=== PATIENT | female | born 2000 | race African-American/Black ===

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

== ENCOUNTER → 2018-01-23 | Outpatient (CLI) | payer OTHER | LOC: M RAD 07:29 | DX: I10 Essential (primary) hypertension (principal) | CPT/HCPCS: 76775 ==

== ENCOUNTER 2019-04-24 18:47 | Emergency (ER) | payer OTHER ==
[~2019-04-24] VITALS: Ht 170.2 cm; Wt 129.6 kg
[~2019-04-24 18:47] MED LIST: NAPR-837 PO; REGL10TA6 PO; [UNRECOGNIZED DRUG - MIXTURE]
[2019-04-24] MEDS: ONDANSETRON 4 MG ORAL DISINTEGRATING TAB (Q0162 PER 1MG) PO ONE (19:14)
[2019-04-24] MEDS: ACETAMINOPHEN 325 MG TAB PO ONE (19:14)
[2019-04-24] MEDS ORDERED: ONDA4TAB6 PO (19:49)
[2019-04-24] MEDS ORDERED: IBUP-1022 PO (19:49)
[2019-04-24 19:54] VITALS: BP 138/84
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
[2019-04-25] MEDS ORDERED: ZOFR4TAB16 PO (18:16)
== END 2019-04-24 19:55 | disposition home or self-care (01) ==
LOC: M ED 18:47
DX: S03.43XA Sprain of jaw, bilateral, initial encounter (principal); S09.90XA Unspecified injury of head, initial encounter; Y04.8XXA Assault by other bodily force, initial encounter; Y92.481 Parking lot as the place of occurrence of the external cause; Y93.89 Activity, other specified; Y99.8 Other external cause status
CPT/HCPCS: 70110; 99283; Q0162

== ENCOUNTER 2019-04-25 17:11 | Emergency (ER) | payer OTHER ==
[~2019-04-25] VITALS: Ht 170.2 cm; Wt 129.6 kg
[~2019-04-25 17:11] MED LIST changes: +IBUP-1022 PO; +ONDA4TAB6 PO
[2019-04-25] MEDS ORDERED: ACETAMINOPHEN 325 MG TAB PO ONE (17:45)
[2019-04-25] MEDS ORDERED: ONDANSETRON 4 MG ORAL DISINTEGRATING TAB (Q0162 PER 1MG) PO ONE (17:45)
[2019-04-25] MEDS ORDERED: ZOFR4TAB16 PO (18:16)
[2019-04-25 18:36] VITALS: BP 141/96
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
== END 2019-04-25 18:38 | disposition home or self-care (01) ==
LOC: M ED 17:11
DX: S06.0X0A Concussion without loss of consciousness, initial encounter (principal); Y04.8XXA Assault by other bodily force, initial encounter; Y92.199 Unspecified place in other specified residential institution as the place of occurrence of the external cause; I10 Essential (primary) hypertension
CPT/HCPCS: 70450; 99283; Q0162

== ENCOUNTER → 2019-10-11 | Outpatient (CLI) | payer OTHER, SELFPAY ==
[~2019-10-11] MED LIST changes: +ZOFR4TAB16 PO
== END ==
LOC: M LABSMTC 14:41
PROVIDERS: ATTEND Family Medicine
DX: Z11.59 Encounter for screening for other viral diseases (principal); Z03.818 Encounter for observation for suspected exposure to other biological agents ruled out
CPT/HCPCS: C9803; U0003

== ENCOUNTER → 2019-12-27 | Outpatient (CLI) | payer SELFPAY ==
[~2019-12-27] MED LIST changes: +BACT800T5 PO; +NORC1TAB7 PO
--- NOTE | 2020-02-21 08:51 | REP ---
CHEST X-RAY CLINICAL: Chest pain. TECHNIQUE: PA and lateral. COMPARISON: 04/04/2015. FINDINGS: Mediastinum and cardiac silhouette normal. Lung alcantar clear. No consolidation, effusion, or pneumothorax. Skeletal structures are intact. IMPRESSION: No acute cardiopulmonary process or focal consolidation. MTDD
== END ==
LOC: M RAD 12:56
PROVIDERS: ATTEND Physician Assistant Medical
DX: Z03.818 Encounter for observation for suspected exposure to other biological agents ruled out (principal); R05 Cough

== ENCOUNTER 2020-01-31 21:03 | Emergency (ER) | payer OTHER, SELFPAY ==
[~2020-01-31] VITALS: Ht 175.3 cm; Wt 134.7 kg
[~2020-01-31 21:03] MED LIST changes: -BACT800T5 PO; -NORC1TAB7 PO
[2020-02-01] MEDS ORDERED: NS 1,000 ML IV ONE (00:15)
[2020-02-01] MEDS ORDERED: cefTRIAXone SOD 1 GM in D5W MINI-BAG PLUS 50 ML IV ONE (00:15)
[2020-02-01 01:11] LABS: BASO % 0.3 % (0.0-1.0); EOS # 0.1 10^3/uL (0.0-0.5); EOS % 1.4 % (0.0-3.0); HEMATOCRIT 30.4 % (36.0-47.0); LYMPH # 1.7 10^3/uL (1.5-5.0); LYMPH % 26.2 % (24.0-44.0); MEAN CORPUSCULAR HEMOGLOBIN 28.5 pg (27.0-33.0); MEAN CORPUSCULAR HGB CONC 32.9 g/dl (32.0-36.5); MEAN CORPUSCULAR VOLUME 86.6 fl (80.0-96.0); MONO # 0.4 10^3/uL (0.0-0.8); MONO % 6.7 % (0.0-5.0); NEUTROPHILS # 4.3 10^3/uL (1.5-8.5); NEUTROPHILS % 65.1 % (36.0-66.0); PLATELET COUNT, AUTOMATED 202 10^3/uL (150-450); RED BLOOD COUNT 3.51 10^6/uL (4.00-5.40); WHITE BLOOD COUNT 6.6 10^3/uL (4.0-10.0)
[2020-02-01 01:31] LABS: ERYTHROCYTE SEDIMENTATION RATE 64 mm/hr (0-20)
[2020-02-01 01:32] LABS: BLOOD UREA NITROGEN 8 MG/DL (7-18); C REACTIVE PROTEIN QUANTITATIV 2.25 MG/DL (0.00-0.30); CALCIUM LEVEL 8.4 MG/DL (8.5-10.1); CARBON DIOXIDE LEVEL 26 MEQ/L (21-32); CHLORIDE LEVEL 106 MEQ/L (98-107); CREATININE FOR GFR 0.72 MG/DL (0.55-1.30); GLOMERULAR FILTRATION RATE > 60.0 (>60); GLUCOSE, FASTING 92 MG/DL (70-100); SODIUM LEVEL 137 MEQ/L (136-145)
[2020-02-01] MEDS ORDERED: BACT800T5 PO (01:44)
[2020-02-01] MEDS ORDERED: NORCO 5/325MG TABLET (BULK FOR ED) PO ONE (01:45)
[2020-02-01 01:55] VITALS: BP 138/82
[2020-02-01] MEDS ORDERED: NORC1TAB7 PO (01:55)
== END 2020-02-01 02:08 | disposition home or self-care (01) ==
LOC: M ED 21:03
DX: L02.31 Cutaneous abscess of buttock (principal); I10 Essential (primary) hypertension; J45.909 Unspecified asthma, uncomplicated; R51 Headache; Z79.899 Other long term (current) drug therapy
CPT/HCPCS: 80048; 85025; 85652; 86140; 87040; 96365; 96366; 99283; J0696

== ENCOUNTER → 2020-03-08 | Outpatient (REF) | payer OTHER ==
[~2020-03-08] MED LIST changes: +BACT800T5 PO; +NORC1TAB7 PO
[2020-03-08 14:15] LABS: APPEARANCE, URINE HAZY (CLEAR); BACTERIA, URINE AUTO 1+ (NEGATIVE); BILIRUBIN, URINE AUTO NEGATIVE (NEGATIVE); BLOOD, URINE BLOOD NEGATIVE (NEGATIVE); COLOR, URINE YELLOW (YELLOW); GLUCOSE, URINE (UA) AUTO NEGATIVE (NEGATIVE); KETONE, URINE AUTO NEGATIVE (NEGATIVE); LEUKOCYTE ESTERASE, URINE AUTO 2+ (NEGATIVE); MUCUS, URINE SMALL (NEGATIVE); NITRITE, URINE AUTO NEGATIVE (NEGATIVE); PROTEIN, URINE AUTO NEGATIVE (NEGATIVE); RBC, URINE AUTO 2 /HPF (0-3); SPECIFIC GRAVITY URINE AUTO 1.017 (1.002-1.035); SQUAMOUS EPITHELIAL CELL UR AU 6 /HPF (0-6); UROBILINOGEN, URINE AUTO 0.2 mg/dL (0.0-2.0); WBC, URINE AUTO 1 /HPF (0-3)
== END ==
LOC: M LAB REF 12:34
PROVIDERS: ATTEND Physician Assistant Medical
DX: N39.0 Urinary tract infection, site not specified (principal); Z11.3 Encounter for screening for infections with a predominantly sexual mode of transmission

== ENCOUNTER → 2020-04-17 | Outpatient (REF) | payer OTHER ==
[2020-04-17 17:09] LABS: ALBUMIN 3.6 GM/DL (3.2-5.2); ALT/SGPT 23 U/L (12-78); BILIRUBIN,TOTAL 0.5 MG/DL (0.2-1.0); BLOOD UREA NITROGEN 10 MG/DL (7-18); CALCIUM LEVEL 8.9 MG/DL (8.5-10.1); CARBON DIOXIDE LEVEL 28 MEQ/L (21-32); CHLORIDE LEVEL 104 MEQ/L (98-107); CHOLESTEROL LEVEL 240 MG/DL (<200); CHOLESTEROL RISK RATIO 7.058 (<5); CREATININE FOR GFR 0.79 MG/DL (0.55-1.30); FREE T4 0.93 NG/DL (0.76-1.46); GLOMERULAR FILTRATION RATE > 60.0 (>60); GLUCOSE, FASTING 135 MG/DL (70-100); HDL CHOLESTEROL 34 MG/DL (>40); LDL CHOLESTEROL 167 MG/DL (<100); NON-HDL-C 206 MG/DL; POTASSIUM SERUM 4.6 MEQ/L (3.5-5.1); SODIUM LEVEL 137 MEQ/L (136-145); THYROID STIMULATING HORMONE 0.957 uIU/ML (0.358-3.740); TOTAL PROTEIN 7.6 GM/DL (6.4-8.2); TRIGLYCERIDES LEVEL 194 MG/DL (<150)
[2020-04-17 17:13] LABS: BASO % 0.9 % (0.0-1.0); EOS # 0.1 10^3/uL (0.0-0.5); EOS % 1.8 % (0.0-3.0); HEMATOCRIT 36.9 % (36.0-47.0); HEMOGLOBIN 11.7 g/dl (12.0-15.5); LYMPH # 1.8 10^3/uL (1.5-5.0); MEAN CORPUSCULAR HEMOGLOBIN 26.7 pg (27.0-33.0); MEAN CORPUSCULAR HGB CONC 31.7 g/dl (32.0-36.5); MEAN CORPUSCULAR VOLUME 84.2 fl (80.0-96.0); MONO # 0.3 10^3/uL (0.0-0.8); MONO % 6.5 % (0.0-5.0); NEUTROPHILS # 2.2 10^3/uL (1.5-8.5); NEUTROPHILS % 49.4 % (36.0-66.0); PLATELET COUNT, AUTOMATED 288 10^3/uL (150-450); RED BLOOD COUNT 4.38 10^6/uL (4.00-5.40); WHITE BLOOD COUNT 4.5 10^3/uL (4.0-10.0)
[2020-04-17 17:15] LABS: HEMOGLOBIN A1c 5.7 %
== END ==
LOC: M LAB REF 16:18
PROVIDERS: ATTEND Nurse Practitioner Family
DX: E66.9 Obesity, unspecified (principal); F41.1 Generalized anxiety disorder; R51.9 Headache, unspecified; F41.9 Anxiety disorder, unspecified

== ENCOUNTER 2020-04-30 09:53 | Emergency (ER) | payer OTHER ==
[~2020-04-30] VITALS: Ht 170.2 cm; Wt 133.4 kg
[2020-04-30] MEDS ORDERED: NS 1,000 ML IV ONE (10:15)
[2020-04-30] MEDS ORDERED: SUMAtriptan SUCCINATE 6 MG/0.5 ML VIAL SC ONE (10:15)
[2020-04-30] MEDS ORDERED: METOCLOPRAMIDE INJ 10MG/2ML VIAL (J2765 PER 1) IV ONE (10:15)
[2020-04-30] MEDS ORDERED: diphenhydrAMINE 50MG/ML VIAL (J1200) IV ONE (10:15)
[2020-04-30] MEDS ORDERED: KETOROLAC 30 MG/ML 1ML VIAL IV ONE (10:15)
--- NOTE | 2020-04-30 12:07 | REP ---
INDICATION: dizziness COMPARISON: 04/25/2019 TECHNIQUE: Axial noncontrast images from the skull base to the vertex with coronal reformations. This CT examination was performed using the following dose reduction techniques: Automated exposure control, adjustment of mA and/or kv according to the patient's size, and use of iterative reconstruction technique. FINDINGS: The ventricles, sulci, and cisterns are normal in position and appearance. Garay-white differentiation is maintained. No acute intracranial hemorrhage, mass/mass effect, pathology or trauma/injury. No evidence for acute infarction. No extra-axial fluid collection. Calvarium is intact. Paranasal sinuses and mastoid air cells are clear. IMPRESSION: Normal noncontrast head CT. No evidence for acute intracranial pathology or trauma/injury. <Electronically signed by Stefan Blancas > 04/30/20 [id number]
[2020-04-30] MEDS ORDERED: MECLIZINE 25 MG TABLET PO ONE (12:15)
[2020-04-30] MEDS ORDERED: ONDANSETRON 4MG/2ML VIAL IV ONE (12:15)
[2020-04-30] MEDS ORDERED: ONDA4TAB6 PO (13:06)
[2020-04-30 13:25] VITALS: BP 118/57
== END 2020-04-30 13:27 | disposition home or self-care (01) ==
LOC: M ED 09:53
DX: R51.9 Headache, unspecified (principal); I10 Essential (primary) hypertension; R42 Dizziness and giddiness; G43.909 Migraine, unspecified, not intractable, without status migrainosus; Z82.0 Family history of epilepsy and other diseases of the nervous system; Z82.49 Family history of ischemic heart disease and other diseases of the circulatory system
CPT/HCPCS: 70450; 96372; 96374; 96375; 99284; J1200; J1885; J2405; J2765

== ENCOUNTER → 2020-10-15 | Outpatient (CLI) | payer OTHER ==
[2020-10-15 11:31] LABS: BASO % 0.7 % (0.0-1.0); EOS # 0.1 10^3/uL (0.0-0.5); EOS % 1.8 % (0.0-3.0); HEMATOCRIT 33.9 % (36.0-47.0); HEMATOCRIT 34.3 % (36.0-47.0); HEMOGLOBIN 10.6 g/dl (12.0-15.5); LYMPH # 1.3 10^3/uL (1.5-5.0); LYMPH % 29.3 % (24.0-44.0); MEAN CORPUSCULAR HEMOGLOBIN 25.1 pg (27.0-33.0); MEAN CORPUSCULAR HGB CONC 30.9 g/dl (32.0-36.5); MEAN CORPUSCULAR VOLUME 81.1 fl (80.0-96.0); MONO # 0.5 10^3/uL (0.0-0.8); MONO % 10.1 % (2.0-8.0); NEUTROPHILS # 2.6 10^3/uL (1.5-8.5); NEUTROPHILS % 57.9 % (36.0-66.0); PLATELET COUNT, AUTOMATED 187 10^3/uL (150-450); RED BLOOD COUNT 4.23 10^6/uL (4.00-5.40); WHITE BLOOD COUNT 4.5 10^3/uL (4.0-10.0)
[2020-10-15 11:49] LABS: HEMOGLOBIN A1c 5.3 %
[2020-10-15 12:09] LABS: ALT/SGPT 17 U/L (12-78); BILIRUBIN,TOTAL 0.7 MG/DL (0.2-1.0); BLOOD UREA NITROGEN 6 MG/DL (7-18); CALCIUM LEVEL 8.9 MG/DL (8.5-10.1); CARBON DIOXIDE LEVEL 23 MEQ/L (21-32); CHLORIDE LEVEL 109 MEQ/L (98-107); CREATININE FOR GFR 0.73 MG/DL (0.55-1.30); FERRITIN 7 NG/ML (8-252); GLOMERULAR FILTRATION RATE > 60.0 (>60); GLUCOSE, FASTING 75 MG/DL (70-100); IRON (FE) 26 UG/DL (50-170); MAGNESIUM LEVEL 1.7 MG/DL (1.8-2.4); PERCENT SATURATION 6.1 % (13.2-45.0); PHOSPHORUS LEVEL 2.9 MG/DL (2.5-4.9); POTASSIUM SERUM 4.2 MEQ/L (3.5-5.1); SODIUM LEVEL 141 MEQ/L (136-145); TOTAL IRON BINDING CAPACITY 426 UG/DL (250-450); TOTAL PROTEIN 7.5 GM/DL (6.4-8.2)
[2020-10-16 10:02] LABS: TOTAL 25(OH) VITAMIN D 22.8 NG/ML (30.0-100.0)
[2020-10-16 10:03] LABS: VITAMIN B12 LEVEL 923 PG/ML (247-911)
== END ==
LOC: M LAB 11:09
PROVIDERS: ATTEND Surgery
DX: K91.2 Postsurgical malabsorption, not elsewhere classified (principal); E55.9 Vitamin D deficiency, unspecified

== ENCOUNTER → 2021-04-12 | Outpatient (CLI) | payer OTHER ==
[2021-04-12 14:58] LABS: BASO % 0.5 % (0.0-1.0); EOS # 0.1 10^3/uL (0.0-0.5); EOS % 2.1 % (0.0-3.0); HEMATOCRIT 29.5 % (36.0-47.0); HEMOGLOBIN 9.3 g/dl (12.0-15.5); LYMPH # 1.7 10^3/uL (1.5-5.0); LYMPH % 42.8 % (24.0-44.0); MEAN CORPUSCULAR HEMOGLOBIN 25.4 pg (27.0-33.0); MEAN CORPUSCULAR HGB CONC 31.5 g/dl (32.0-36.5); MEAN CORPUSCULAR VOLUME 80.6 fl (80.0-96.0); MONO # 0.4 10^3/uL (0.0-0.8); MONO % 10.6 % (2.0-8.0); NEUTROPHILS # 1.7 10^3/uL (1.5-8.5); NEUTROPHILS % 43.7 % (36.0-66.0); PLATELET COUNT, AUTOMATED 204 10^3/uL (150-450); RED BLOOD COUNT 3.66 10^6/uL (4.00-5.40); WHITE BLOOD COUNT 3.9 10^3/uL (4.0-10.0)
[2021-04-12 14:59] LABS: HEMATOCRIT 29.5 % (36.0-47.0)
[2021-04-12 16:08] LABS: HEMOGLOBIN A1c 5.1 %
[2021-04-12 16:34] LABS: ALT/SGPT 16 U/L (12-78); BLOOD UREA NITROGEN 6 MG/DL (7-18); CALCIUM LEVEL 8.5 MG/DL (8.5-10.1); CARBON DIOXIDE LEVEL 24 MEQ/L (21-32); CHLORIDE LEVEL 107 MEQ/L (98-107); CREATININE FOR GFR 0.68 MG/DL (0.55-1.30); GLOMERULAR FILTRATION RATE > 60.0 (>60); GLUCOSE, FASTING 80 MG/DL (70-100); PHOSPHORUS LEVEL 4.4 MG/DL (2.5-4.9); POTASSIUM SERUM 3.8 MEQ/L (3.5-5.1); SODIUM LEVEL 140 MEQ/L (136-145)
[2021-04-12 16:35] LABS: ALBUMIN 3.3 GM/DL (3.2-5.2); BILIRUBIN,TOTAL 0.6 MG/DL (0.2-1.0); FERRITIN 5 NG/ML (8-252); IRON (FE) 26 UG/DL (50-170); PERCENT SATURATION 6.2 % (13.2-45.0); TOTAL 25(OH) VITAMIN D 36.6 NG/ML (30.0-100.0); TOTAL IRON BINDING CAPACITY 421 UG/DL (250-450); TOTAL PROTEIN 6.8 GM/DL (6.4-8.2); VITAMIN B12 LEVEL > 2000 PG/ML (247-911)
== END ==
LOC: M LAB 13:32
PROVIDERS: ATTEND Surgery
DX: K91.2 Postsurgical malabsorption, not elsewhere classified (principal)

== ENCOUNTER 2021-07-15 21:06 | Emergency (ER) | payer OTHER ==
[~2021-07-15] VITALS: Ht 170.2 cm; Wt 85.4 kg
[2021-07-15 21:07] VITALS: BP 122/76
[2021-07-15] MEDS ORDERED: OMEP40CA4 PO (21:18)
[2021-07-15] MEDS ORDERED: WELLTAB38 PO (21:18)
== END 2021-07-15 23:08 | disposition left against medical advice (07) ==
LOC: M ED 21:06
DX: Z53.21 Procedure and treatment not carried out due to patient leaving prior to being seen by health care provider (principal)

== ENCOUNTER 2021-08-14 16:14 | Emergency (ER) | payer OTHER, SELFPAY ==
[~2021-08-14] VITALS: Ht 170.2 cm; Wt 81.8 kg
[~2021-08-14 16:14] MED LIST changes: +OMEP40CA4 PO; +WELLTAB38 PO
[2021-08-14] MEDS ORDERED: NS 1,000 ML IV SCH (17:35)
[2021-08-14] MEDS ORDERED: NS 1,000 ML IV ONE (17:55)
[2021-08-14 18:13] LABS: EOS % 0.6 % (0.0-3.0); HEMATOCRIT 26.9 % (36.0-47.0); HEMOGLOBIN 8.3 g/dl (12.0-15.5); LYMPH % 39.6 % (24.0-44.0); MEAN CORPUSCULAR HEMOGLOBIN 23.6 pg (27.0-33.0); MEAN CORPUSCULAR HGB CONC 30.9 g/dl (32.0-36.5); MEAN CORPUSCULAR VOLUME 76.4 fl (80.0-96.0); MONO % 7.7 % (2.0-8.0); NEUTROPHILS % 51.3 % (36.0-66.0); PLATELET COUNT, AUTOMATED 211 10^3/uL (150-450); RED BLOOD COUNT 3.52 10^6/uL (4.00-5.40); WHITE BLOOD COUNT 5.2 10^3/uL (4.0-10.0)
[2021-08-14 18:14] LABS: BASO % 0.8 % (0.0-1.0); LYMPH # 2.1 10^3/uL (1.5-5.0); MONO # 0.4 10^3/uL (0.0-0.8); NEUTROPHILS # 2.7 10^3/uL (1.5-8.5)
[2021-08-14 18:55] LABS: HCG, SERUM QUALITATIVE NEGATIVE (NEGATIVE)
[2021-08-14 18:56] LABS: BLOOD UREA NITROGEN 11 MG/DL (7-18); CALCIUM LEVEL 8.2 MG/DL (8.5-10.1); CARBON DIOXIDE LEVEL 30 MEQ/L (21-32); CHLORIDE LEVEL 104 MEQ/L (98-107); CREATININE FOR GFR 0.57 MG/DL (0.55-1.30); GLOMERULAR FILTRATION RATE > 60.0 (>60); GLUCOSE, FASTING 83 MG/DL (70-100); POTASSIUM SERUM 4.2 MEQ/L (3.5-5.1); SODIUM LEVEL 138 MEQ/L (136-145); THYROID STIMULATING HORMONE 0.321 uIU/ML (0.358-3.740)
[2021-08-14 19:25] LABS: FREE T4 0.94 NG/DL (0.76-1.46)
[2021-08-14 19:57] VITALS: BP 129/78
== END 2021-08-14 20:21 | disposition home or self-care (01) ==
LOC: M ED 16:14
DX: R55 Syncope and collapse (principal); G43.909 Migraine, unspecified, not intractable, without status migrainosus; I10 Essential (primary) hypertension; Z88.6 Allergy status to analgesic agent; Z98.84 Bariatric surgery status

== ENCOUNTER 2021-11-08 20:56 | Observation (INO) | payer BC, SELFPAY ==
[~2021-11-08] VITALS: Ht 170.2 cm; Wt 84.6 kg
[2021-11-08 22:51] LABS: BASO % 0.7 % (0.0-1.0); EOS # 0.1 10^3/uL (0.0-0.5); EOS % 1.2 % (0.0-3.0); HEMATOCRIT 22.9 % (36.0-47.0); LYMPH # 1.8 10^3/uL (1.5-5.0); LYMPH % 42.6 % (24.0-44.0); MEAN CORPUSCULAR HEMOGLOBIN 21.4 pg (27.0-33.0); MEAN CORPUSCULAR HGB CONC 29.7 g/dl (32.0-36.5); MONO # 0.3 10^3/uL (0.0-0.8); MONO % 6.9 % (2.0-8.0); NEUTROPHILS % 48.1 % (36.0-66.0); PLATELET COUNT, AUTOMATED 197 10^3/uL (150-450); RED BLOOD COUNT 3.18 10^6/uL (4.00-5.40); WHITE BLOOD COUNT 4.2 10^3/uL (4.0-10.0)
[2021-11-08 23:05] LABS: HEMOGLOBIN 6.8 g/dl (12.0-15.5)
[2021-11-08 23:13] LABS: FERRITIN 3 NG/ML (8-252); IRON (FE) 9 UG/DL (50-170); TOTAL IRON BINDING CAPACITY 451 UG/DL (250-450)
[2021-11-08 23:48] LABS: VITAMIN B12 LEVEL 529 PG/ML (247-911)
[2021-11-08 23:53] LABS: RSV AMPLIFICATION NEGATIVE (NEGATIVE)
[2021-11-08 23:57] LABS: HCG, SERUM QUALITATIVE NEGATIVE (NEGATIVE)
[2021-11-09] VITALS (13 sets, daily range): BP systolic 115–142; BP diastolic 58–92
[2021-11-09] MEDS ORDERED: BUPR1TAB53 PO (00:24)
[2021-11-09] MEDS ORDERED: CALC250T PO (00:24)
[2021-11-09] MEDS ORDERED: B-12100011 SL (00:24)
[2021-11-09] MEDS ORDERED: IRON SUCROSE 100MG 5ML VIAL (J1756 PER 1MG) IV SCH (01:45)
[2021-11-09] MEDS ORDERED: IRON SUCROSE 200 MG in NS 100 ML OVER 1 HR IV ONE (03:00)
[2021-11-09] MEDS ORDERED: BUPR-365 PO (06:18)
[2021-11-09 08:11] LABS: HEMATOCRIT 27.5 % (36.0-47.0); HEMOGLOBIN 8.6 g/dl (12.0-15.5)
[2021-11-09 08:51] LABS: ALBUMIN 3.1 GM/DL (3.2-5.2); ALT/SGPT 15 U/L (12-78); BILIRUBIN,TOTAL 1.2 MG/DL (0.2-1.0); BLOOD UREA NITROGEN 8 MG/DL (7-18); CARBON DIOXIDE LEVEL 26 MEQ/L (21-32); CHLORIDE LEVEL 110 MEQ/L (98-107); CREATININE FOR GFR 0.59 MG/DL (0.55-1.30); GLOMERULAR FILTRATION RATE > 60.0 (>60); GLUCOSE, FASTING 86 MG/DL (70-100); LDH LACTATE DEHYDROGENASE 99 U/L (84-246); POTASSIUM SERUM 3.9 MEQ/L (3.5-5.1); SODIUM LEVEL 140 MEQ/L (136-145); TOTAL PROTEIN 6.2 GM/DL (6.4-8.2)
[2021-11-09] MEDS: buPROPion **XL** TABLET 150MG (WELLBUTRIN XL) PO SCH (10:13)
[2021-11-09] MEDS: CYANOCOBALAMIN 500 MCG TAB PO SCH (10:13)
[2021-11-09] MEDS: OMEPRAZOLE 20MG CAP PO SCH (10:13)
[2021-11-09] MEDS: MULTIVITAMINS/MINERALS THERAP 1 TAB PO SCH (13:30)
[2021-11-09 13:55] LABS: HEMATOCRIT 27.2 % (36.0-47.0); HEMOGLOBIN 8.6 g/dl (12.0-15.5)
[2021-11-09] MEDS: ACETAMINOPHEN TAB 650MG DOSE (2X325MG) PO PRN (17:59)
[2021-11-09 22:15] LABS: HEMATOCRIT 26.1 % (36.0-47.0)
[2021-11-10] VITALS: BP 121/69
[2021-11-10 04:00] VITALS: BP 121/71
[2021-11-10 05:29] LABS: HEMATOCRIT 26.8 % (36.0-47.0); HEMOGLOBIN 8.2 g/dl (12.0-15.5); MEAN CORPUSCULAR HEMOGLOBIN 22.7 pg (27.0-33.0); MEAN CORPUSCULAR HGB CONC 30.6 g/dl (32.0-36.5); PLATELET COUNT, AUTOMATED 168 10^3/uL (150-450); RED BLOOD COUNT 3.62 10^6/uL (4.00-5.40); WHITE BLOOD COUNT 3.6 10^3/uL (4.0-10.0)
[2021-11-10 05:53] LABS: BLOOD UREA NITROGEN 7 MG/DL (7-18); CALCIUM LEVEL 8.7 MG/DL (8.5-10.1); CARBON DIOXIDE LEVEL 27 MEQ/L (21-32); CHLORIDE LEVEL 109 MEQ/L (98-107); CREATININE FOR GFR 0.62 MG/DL (0.55-1.30); GLOMERULAR FILTRATION RATE > 60.0 (>60); GLUCOSE, FASTING 96 MG/DL (70-100); MAGNESIUM LEVEL 1.9 MG/DL (1.8-2.4); POTASSIUM SERUM 3.9 MEQ/L (3.5-5.1); SODIUM LEVEL 140 MEQ/L (136-145)
[2021-11-10 07:27] VITALS: BP 125/82
[2021-11-10] MEDS: OMEPRAZOLE 20MG CAP PO SCH (08:39)
[2021-11-10] MEDS: MULTIVITAMINS/MINERALS THERAP 1 TAB PO SCH (08:40)
[2021-11-10] MEDS: ACETAMINOPHEN TAB 650MG DOSE (2X325MG) PO PRN (08:40)
[2021-11-10] MEDS: CYANOCOBALAMIN 500 MCG TAB PO SCH (08:40)
[2021-11-10] MEDS: buPROPion **XL** TABLET 150MG (WELLBUTRIN XL) PO SCH (08:40)
[2021-11-10] MEDS ORDERED: FERROUS GLUCONATE 324 MG TAB PO SCH (09:00)
[2021-11-10 12:03] VITALS: BP 118/75
[2021-11-10 16:04] VITALS: BP 129/73
[2021-11-10] MEDS ORDERED: FERR32TA PO (17:49)
[2021-11-10] MEDS ORDERED: MULT-90 PO (17:49)
[2021-11-10] MEDS ORDERED: NORE0.353 PO (17:50)
== END 2021-11-10 18:43 | disposition home or self-care (01) ==
LOC: M ED 20:56 → M ED INP 20:57 → ENRESERV 11-09 01:59 → M MS5PR 11-09 02:35 → M PCU 11-09 14:11
PROVIDERS: ADMIT Internal Medicine; ATTEND Internal Medicine
DX: D50.9 Iron deficiency anemia, unspecified (principal); N92.0 Excessive and frequent menstruation with regular cycle; R55 Syncope and collapse; Z87.19 Personal history of other diseases of the digestive system; Z98.84 Bariatric surgery status; E66.9 Obesity, unspecified; J45.909 Unspecified asthma, uncomplicated; I10 Essential (primary) hypertension; R20.0 Anesthesia of skin; K21.9 Gastro-esophageal reflux disease without esophagitis; F17.290 Nicotine dependence, other tobacco product, uncomplicated; G43.909 Migraine, unspecified, not intractable, without status migrainosus; Z79.899 Other long term (current) drug therapy; Z88.8 Allergy status to other drugs, medicaments and biological substances
CPT/HCPCS: 36415; 36430; 70450; 76856; 80047; 80048; 80053; 80503; 82607; 82728; 82746; 83550; 83615; 83735; 84443; 84703; 85014; 85018; 85025; 85027; 85046; 86850; 86900; 86901; 86920; 87631; 93005; 93306; 96365; 99285; J1756; P9016

== ENCOUNTER 2022-03-11 22:11 | Emergency (ER) | payer BC, OTHER ==
[~2022-03-11] VITALS: Ht 170.2 cm; Wt 85.0 kg
[~2022-03-11 22:11] MED LIST changes: +B-12100011 SL; +BUPR-365 PO; +BUPR1TAB53 PO; +BUPR300T92 PO; +CALC250T PO; +ERGO500029; +FERR32TA PO; +FERRTAB6; +METF500T13; +MULT-90 PO; +NORE0.353 PO; +VITA500C24 PO
[2022-03-11 22:36] VITALS: BP 140/87
[2022-03-11] MEDS ORDERED: VYVA40CA3 PO (22:42)
[2022-03-12] MEDS ORDERED: CEPHALEXIN 500 MG CAP PO ONE (00:50)
[2022-03-12] MEDS ORDERED: PHENAZOPYRIDINE 100 MG TAB PO ONE (00:50)
[2022-03-12] MEDS ORDERED: CEPH500C PO (00:52)
[2022-03-12] MEDS ORDERED: PYRI1TAB5 PO (00:52)
== END 2022-03-12 01:04 | disposition home or self-care (01) ==
LOC: M ED 22:11
DX: N39.0 Urinary tract infection, site not specified (principal); F32.9 Major depressive disorder, single episode, unspecified; Z98.84 Bariatric surgery status; Z79.899 Other long term (current) drug therapy; Z88.6 Allergy status to analgesic agent; Z88.8 Allergy status to other drugs, medicaments and biological substances

== ENCOUNTER 2022-04-24 20:57 | Emergency (ER) | payer OTHER ==
[~2022-04-24] VITALS: Ht 170.2 cm; Wt 84.5 kg
[~2022-04-24 20:57] MED LIST changes: +CEPH500C PO; +PYRI1TAB5 PO; +VYVA40CA3 PO
[2022-04-24 21:48] VITALS: BP 141/90
[2022-04-24 22:27] LABS: RSV AMPLIFICATION NEGATIVE (NEGATIVE)
== END 2022-04-25 00:48 | disposition left against medical advice (07) ==
LOC: M ED 20:57
DX: Z53.21 Procedure and treatment not carried out due to patient leaving prior to being seen by health care provider (principal)

== ENCOUNTER → 2022-07-02 | Outpatient (CLI) | payer OTHER ==
[~2022-07-02] MED LIST changes: +FERRTAB6 PO; +MULTTAB20 PO
[2022-07-02 15:35] LABS: HEMATOCRIT 35.3 % (36.0-47.0); HEMOGLOBIN 11.4 g/dl (12.0-15.5); MEAN CORPUSCULAR HEMOGLOBIN 26.7 pg (27.0-33.0); MEAN CORPUSCULAR HGB CONC 32.3 g/dl (32.0-36.5); MEAN CORPUSCULAR VOLUME 82.7 fl (80.0-96.0); PLATELET COUNT, AUTOMATED 223 10^3/uL (150-450); RED BLOOD COUNT 4.27 10^6/uL (4.00-5.40); WHITE BLOOD COUNT 5.1 10^3/uL (4.0-10.0)
[2022-07-02 16:09] LABS: FOLATE 8.97 NG/ML (>5.4)
[2022-07-02 16:31] LABS: HIV 1&2 SCREEN CENTAUR NEGATIVE (NEGATIVE)
[2022-07-02 16:43] LABS: VITAMIN B12 LEVEL > 2000 PG/ML (211-911)
[2022-07-02 17:00] LABS: GC DNA AMPLIFICATION NEGATIVE (NEGATIVE)
[2022-07-02 17:28] LABS: HEMOGLOBIN A1c 4.5 % (4.0-6.0)
== END ==
LOC: M PLALAB 13:45
PROVIDERS: ATTEND Advanced Practice Midwife
DX: Z36.9 Encounter for antenatal screening, unspecified (principal)

== ENCOUNTER 2022-07-27 12:48 | Emergency (ER) | payer BC, OTHER ==
[~2022-07-27] VITALS: Ht 170.2 cm; Wt 91.1 kg
[2022-07-27] MEDS ORDERED: PROPARACAINE 0.5% OPHTH SOL 15ML OD ONE (14:00)
[2022-07-27] MEDS ORDERED: FLUORESCEIN OPHTH 1MG STRIP OD ONE (14:00)
[2022-07-27] MEDS: ONDANSETRON 4MG TAB PO ONE ×2 (14:25→14:35)
[2022-07-27] MEDS ORDERED: ACETAMINOPHEN 500 MG TAB PO ONE (14:25)
[2022-07-27] MEDS ORDERED: NS 1,000 ML IV ONE (14:55)
[2022-07-27 15:17] LABS: BASO % 0.5 % (0.0-1.0); EOS % 0.5 % (0.0-3.0); HEMATOCRIT 35.6 % (36.0-47.0); HEMOGLOBIN 12.1 g/dl (12.0-15.5); LYMPH # 1.2 10^3/uL (1.5-5.0); LYMPH % 19.4 % (24.0-44.0); MEAN CORPUSCULAR HEMOGLOBIN 28.4 pg (27.0-33.0); MEAN CORPUSCULAR VOLUME 83.6 fl (80.0-96.0); MONO # 0.4 10^3/uL (0.0-0.8); MONO % 6.4 % (2.0-8.0); NEUTROPHILS # 4.6 10^3/uL (1.5-8.5); PLATELET COUNT, AUTOMATED 178 10^3/uL (150-450); RED BLOOD COUNT 4.26 10^6/uL (4.00-5.40); WHITE BLOOD COUNT 6.3 10^3/uL (4.0-10.0)
[2022-07-27 15:57] LABS: BLOOD UREA NITROGEN 7 MG/DL (9-23); CALCIUM LEVEL 8.3 MG/DL (8.5-10.1); CARBON DIOXIDE LEVEL 24 MMOL/L (20-31); CHLORIDE LEVEL 105 MMOL/L (98-107); CREATININE FOR GFR 0.46 MG/DL (0.55-1.30); GLOMERULAR FILTRATION RATE > 60.0 (>60); GLUCOSE, FASTING 85 MG/DL (60-100); POTASSIUM SERUM 3.5 MMOL/L (3.5-5.1); SODIUM LEVEL 136 MMOL/L (136-145)
[2022-07-27 16:30] VITALS: BP 139/80
== END 2022-07-27 16:32 | disposition home or self-care (01) ==
LOC: M ED 12:48
DX: O26.891 Other specified pregnancy related conditions, first trimester (principal); R51.9 Headache, unspecified; O99.281 Endocrine, nutritional and metabolic diseases complicating pregnancy, first trimester; E87.6 Hypokalemia; Z98.84 Bariatric surgery status; J45.909 Unspecified asthma, uncomplicated; G43.909 Migraine, unspecified, not intractable, without status migrainosus; R56.9 Unspecified convulsions; D64.9 Anemia, unspecified; Z3A.00 Weeks of gestation of pregnancy not specified; Z79.899 Other long term (current) drug therapy

== ENCOUNTER → 2022-08-07 | Outpatient (CLI) | payer BC, OTHER | LOC: M PLALAB 16:08 | PROVIDERS: ATTEND Advanced Practice Midwife | DX: O99.841 Bariatric surgery status complicating pregnancy, first trimester (principal); Z3A.11 11 weeks gestation of pregnancy ==

== ENCOUNTER → 2025-02-01 | Outpatient (CLI) | payer OTHER ==
[~2025-02-01] MED LIST changes: +BUPR-766 PO; +BUPR150T15 PO; -BUPR1TAB53 PO; -BUPR300T92 PO; -IBUP-1022 PO; +IBUP600T42 PO; +ONDA-282 PO; -ONDA4TAB6 PO
[2025-02-01 15:58] LABS: BASO # 0.0 10^3/uL (0.0-0.2); BASO % 0.4 % (0.0-1.0); EOS # 0.0 10^3/uL (0.0-0.5); EOS % 0.5 % (0.0-3.0); LYMPH # 1.6 10^3/uL (1.5-5.0); LYMPH % 29.1 % (24.0-44.0); MONO # 0.4 10^3/uL (0.0-0.8); MONO % 7.2 % (2.0-8.0); NEUTROPHILS # 3.5 10^3/uL (1.5-8.5); NEUTROPHILS % 62.6 % (36.0-66.0); PLATELET COUNT, AUTOMATED 159 10^3/uL (150-450)
== END ==
LOC: M LAB 15:37
PROVIDERS: ATTEND Obstetrics & Gynecology Obstetrics
DX: N91.1 Secondary amenorrhea (principal); Z71.9 Counseling, unspecified

== ENCOUNTER 2025-04-13 20:13 | Emergency (ER) | payer OTHER | END 2025-04-13 20:18 | disposition admitted as inpatient to this hospital (09) | LOC: M ED 20:13 | DX: Z53.21 Procedure and treatment not carried out due to patient leaving prior to being seen by health care provider (principal) ==

== ENCOUNTER 2025-04-13 20:24 | Outpatient (CLI) | payer OTHER ==
[~2025-04-13] VITALS: Ht 165.1 cm; Wt 109.0 kg
[2025-04-13 20:31] VITALS: BP 113/65
== END 2025-04-13 21:00 | disposition home or self-care (01) ==
LOC: M LDO 20:24
PROVIDERS: ATTEND Advanced Practice Midwife
DX: O24.419 Gestational diabetes mellitus in pregnancy, unspecified control (principal); O21.8 Other vomiting complicating pregnancy; Z87.59 Personal history of other complications of pregnancy, childbirth and the puerperium; Z3A.24 24 weeks gestation of pregnancy
CPT/HCPCS: 59025; G0463

== ENCOUNTER → 2025-05-03 | Outpatient (CLI) | payer OTHER ==
[2025-05-03 17:03] LABS: PLATELET COUNT, AUTOMATED 165 10^3/uL (150-450)
== END ==
LOC: M LAB 16:06
PROVIDERS: ATTEND Obstetrics & Gynecology Obstetrics
DX: Z34.82 Encounter for supervision of other normal pregnancy, second trimester (principal)